=== PATIENT | female | born 1985 | race Caucasian/White ===

== ENCOUNTER 2019-09-05 05:41 | Inpatient (IN) ==
[2019-09-05] MEDS ORDERED: Metoclopramide 10 MG/2 ML VIAL IVP PRN ×2 (05:43→10:57)
[2019-09-05] MEDS ORDERED: Famotidine 20 MG/2 ML VIAL IVP PRN (05:43)
[2019-09-05] MEDS ORDERED: Naloxone 0.4 MG/ML INJ IVP PRN (05:43)
[2019-09-05] MEDS ORDERED: Ringers Solution, Lactated 1,000 ML IVC SCH ×2 (05:45→10:57)
[2019-09-05 06:25] LABS: Basophils % 0.2 %; Eosinophils % 0.2 %; Hematocrit 33.6 % (35.3-44.9); Hemoglobin 11.1 g/dL (11.5-15.4); Immature Granulocytes % 1.1 % (0-4); Lymphocytes % 16.4 %; Mean Corpuscular Hemoglobin 29.9 pg (28.0-33.3); Mean Corpuscular Volume 90.6 fL (83.0-100.0); Mean Platelet Volume 10.6 fL (9.4-12.4); Monocytes # 0.7 K/mcL (0.0-1.3); Monocytes % 5.5 %; Neutrophils # 9.3 K/mcL (1.6-8.9); Platelet Count 206 K/mcL (140-400); Red Blood Count 3.71 M/mcL (3.82-4.97); Red Cell Distribution Width 14.6 % (11.5-14.5); Segmented Neutrophils % 76.6 %; White Blood Count 12.1 K/mcL (4.3-11.1)
[2019-09-05 06:27] LABS: Amphetamine Screen,Urine Negative ng/mL (Cutoff=1000); Barbiturate Screen,Urine Negative ng/mL (Cutoff=200); Benzodiazepines Screen,Urine Negative ng/mL (Cutoff=300); Cannabinoid Screen,Urine Negative ng/mL (Cutoff = 50)
[2019-09-05 06:28] LABS: Cocaine Screen,Urine Negative ng/mL (Cutoff= 300); Opiate Screen,Urine Negative ng/mL (Cutoff=300); Phencyclidine Screen,Urine Negative ng/mL (Cutoff=25)
[2019-09-05] MEDS ORDERED: CeFAZolin 2,000 MG/50 ML BAG IVPB ONE (06:59)
[2019-09-05] MEDS ORDERED: *HR* Oxytocin 10 UNIT/ML VIAL IM ONE (07:05)
[2019-09-05] MEDS ORDERED: *HR* Morphine Sulfate/PF 10 MG/10 ML AMPUL ONE (07:05)
[2019-09-05] MEDS ORDERED: *HR* FentaNYL (PF) 100 MCG/2 ML VIAL ONE (07:05)
[2019-09-05] MEDS ORDERED: Ondansetron 4 MG/2 ML VIAL IVP PRN ×2 (07:37→10:57)
[2019-09-05] MEDS ORDERED: Acetaminophen IV 1,000 MG/100 ML INFUS..BTL IVPB ONE (07:37)
[2019-09-05] MEDS ORDERED: *HR* HYDROmorphone PF 0.5 MG/0.5 ML SYRINGE IVP PRN (07:37)
[2019-09-05] MEDS ORDERED: Oxytocin 20 units/ LR 1000 mL 20 UNIT/1,000 ML BAG IVC ONE (09:34)
[2019-09-05] MEDS ORDERED: Simethicone 80 MG TAB.CHEW PO PRN (10:57)
[2019-09-05] MEDS ORDERED: Rho Immune Globulin 1,500 UNIT SYRINGE IM ONE (10:57)
[2019-09-05] MEDS ORDERED: *HR* OxyCODONE Immed Rel 5 MG TABLET PO PRN (10:57)
[2019-09-05] MEDS ORDERED: Sennosides 8.6 MG TABLET PO PRN (10:57)
[2019-09-05] MEDS ORDERED: Oxytocin 20 units/ LR 1000 mL 20 UNIT/1,000 ML BAG IVC SCH (10:57)
[2019-09-05] MEDS: *HR* OxyCODONE/APAP 5/325 TABLET PO PRN (11:40)
[2019-09-05] MEDS: Ibuprofen 600 MG TABLET PO PRN ×2 (14:14→20:03)
[2019-09-06] MEDS: Ibuprofen 600 MG TABLET PO PRN ×3 (01:47→17:45)
[2019-09-06] MEDS: Acetaminophen 325 MG TABLET PO PRN ×2 (05:26→20:35)
[2019-09-06 07:41] LABS: Basophils % 0.2 %; Eosinophils # 0.1 K/mcL (0.0-0.6); Eosinophils % 0.5 %; Hematocrit 30.7 % (35.3-44.9); Hemoglobin 9.9 g/dL (11.5-15.4); Immature Granulocytes % 0.7 % (0-4); Lymphocytes # 1.3 K/mcL (0.6-4.6); Lymphocytes % 12.9 %; Mean Corpuscular HGB Conc 32.2 g/dL (31.6-35.5); Mean Corpuscular Hemoglobin 29.1 pg (28.0-33.3); Mean Corpuscular Volume 90.3 fL (83.0-100.0); Mean Platelet Volume 10.5 fL (9.4-12.4); Monocytes # 0.6 K/mcL (0.0-1.3); Neutrophils # 8.1 K/mcL (1.6-8.9); Platelet Count 169 K/mcL (140-400); Red Cell Distribution Width 14.4 % (11.5-14.5); Segmented Neutrophils % 79.7 %; White Blood Count 10.1 K/mcL (4.3-11.1)
[2019-09-06] MEDS: Prenatal Vit/FA 1 EACH TABLET PO SCH (08:00)
[2019-09-06] MEDS: *HR* OxyCODONE/APAP 5/325 TABLET PO PRN (14:06)
[2019-09-07] MEDS: *HR* OxyCODONE/APAP 5/325 TABLET PO PRN ×2 (00:01→14:35)
[2019-09-07] MEDS: Ibuprofen 600 MG TABLET PO PRN ×2 (02:48→08:54)
[2019-09-07 08:14] VITALS: BP 122/66
[2019-09-07] MEDS: Prenatal Vit/FA 1 EACH TABLET PO SCH (08:54)
== END 2019-09-07 14:45 | disposition home or self-care (01) | DRG 788 ==
LOC: 1NENULAB 05:41 → 1NENUOBS 11:06
PROVIDERS: ADMIT Obstetrics & Gynecology; ATTEND Obstetrics & Gynecology